=== PATIENT | female | born 1985 | race Caucasian/White ===

== ENCOUNTER 2020-03-12 08:58 | Emergency (ER) | payer BC ==
[~2020-03-12] VITALS: Ht 175.3 cm; Wt 104.8 kg
[2020-03-12] MEDS ORDERED: IBUPROF (09:07)
[2020-03-12] MEDS ORDERED: CITA20TA6 (09:07)
[2020-03-12] MEDS ORDERED: OMEP-221 (09:07)
[2020-03-12] MEDS ORDERED: LIDOCAINE VISCOUS 2% SOLN 15ML UDC SSP ONE (10:15)
[2020-03-12] MEDS ORDERED: LIDO2SOL17 SSP (10:18)
[2020-03-12 10:30] VITALS: BP 134/69
== END 2020-03-12 10:33 | disposition home or self-care (01) ==
LOC: M ED 08:58
DX: K12.0 Recurrent oral aphthae (principal); K02.9 Dental caries, unspecified; F41.9 Anxiety disorder, unspecified; K21.9 Gastro-esophageal reflux disease without esophagitis; Z88.2 Allergy status to sulfonamides; Z88.1 Allergy status to other antibiotic agents; Z88.8 Allergy status to other drugs, medicaments and biological substances; Z79.899 Other long term (current) drug therapy

== ENCOUNTER 2023-09-26 17:42 | Emergency (ER) | payer BC ==
[~2023-09-26] VITALS: Ht 175.3 cm; Wt 114.7 kg
[~2023-09-26 17:42] MED LIST: CITA20TA6; IBUPROF; LIDO15SO8 SSP; OMEP40CA5
[2023-09-26 17:43] VITALS: TEMP 96.1
[2023-09-26] MEDS ORDERED: LISI10TA22 PO (17:54)
[2023-09-26] MEDS ORDERED: CHLO25CA10 PO (17:54)
[2023-09-26] MEDS ORDERED: CLAR500T97 PO (17:54)
[2023-09-26 21:16] LABS: BASO # 0.1 10^3/uL (0.0-0.2); BASO % 0.5 % (0.0-1.0); EOS # 0.3 10^3/uL (0.0-0.5); HEMATOCRIT 43.6 % (36.0-47.0); HEMOGLOBIN 14.8 g/dl (12.0-15.5); LYMPH # 3.2 10^3/uL (1.5-5.0); LYMPH % 25.9 % (24.0-44.0); MEAN CORPUSCULAR HEMOGLOBIN 31.1 pg (27.0-33.0); MEAN CORPUSCULAR HGB CONC 33.9 g/dl (32.0-36.5); MEAN CORPUSCULAR VOLUME 91.6 fl (80.0-96.0); MONO # 1.1 10^3/uL (0.0-0.8); MONO % 9.2 % (2.0-8.0); NEUTROPHILS # 7.6 10^3/uL (1.5-8.5); NEUTROPHILS % 61.9 % (36.0-66.0); PLATELET COUNT, AUTOMATED 251 10^3/uL (150-450); RED BLOOD COUNT 4.76 10^6/uL (4.00-5.40); WHITE BLOOD COUNT 12.3 10^3/uL (4.0-10.0)
[2023-09-26 21:45] LABS: BLOOD UREA NITROGEN 20 MG/DL (9-23); CALCIUM LEVEL 9.1 MG/DL (8.5-10.1); CARBON DIOXIDE LEVEL 23 MMOL/L (20-31); CHLORIDE LEVEL 104 MMOL/L (98-107); CREATININE FOR GFR 0.64 MG/DL (0.55-1.30); GLOMERULAR FILTRATION RATE > 60.0 (>58); GLUCOSE, FASTING 105 MG/DL (60-100); POTASSIUM SERUM 3.7 MMOL/L (3.5-5.1); SODIUM LEVEL 138 MMOL/L (136-145)
[2023-09-26 21:46] LABS: CK-MB VALUE MASS 1.4 NG/ML (<3.6)
[2023-09-26 21:49] LABS: FREE T4 1.02 NG/DL (0.89-1.76); THYROID STIMULATING HORMONE 9.794 uIU/ML (0.55-4.78)
[2023-09-26 22:05] LABS: CPK CREATINE PHOSPHOKINASE 172 U/L (34-145); MB/CK RELATIVE INDEX 0.81 (< OR =4)
[2023-09-26] MEDS ORDERED: ISOVUE-370 76% 100ML VIAL As Ordered ONE (22:14)
[2023-09-26 23:00] LABS: CK-MB VALUE MASS 1.3 NG/ML (<3.6)
[2023-09-26 23:15] LABS: MB/CK RELATIVE INDEX 0.78 (< OR =4)
[2023-09-27] MEDS: NS 1,000 ML IV ONE (00:02)
[2023-09-27 00:05] VITALS: BP 124/76; O2SAT 98
== END 2023-09-27 01:49 | disposition home or self-care (01) ==
LOC: M ED 17:42
DX: R07.9 Chest pain, unspecified (principal); R94.6 Abnormal results of thyroid function studies; R22.43 Localized swelling, mass and lump, lower limb, bilateral; R00.0 Tachycardia, unspecified; Z88.1 Allergy status to other antibiotic agents; Z88.2 Allergy status to sulfonamides; Z88.8 Allergy status to other drugs, medicaments and biological substances; Z79.899 Other long term (current) drug therapy
CPT/HCPCS: 71046; 71275; 80048; 82550; 82553; 83880; 84439; 84443; 85025; 85379; 93005; 93970; 96360; 96361; 99284; Q9967